=== PATIENT | female | born 1970 | race American Indian/Alaskan Native ===

== ENCOUNTER 2019-07-27 08:13 | Day surgery (SDC) | payer BC ==
[2019-07-27] MEDS ORDERED: METOPROLOL TARTRATE 50 MG TAB PO ONE (09:00)
[2019-07-27] MEDS ORDERED: METOPROLOL TARTRATE 50 MG TAB ONE (09:01)
[2019-07-27] MEDS ORDERED: METOPROLOL TARTRATE 25 MG TAB PO ONE (09:02)
[2019-07-27] MEDS ORDERED: METOPROLOL TARTRATE 25 MG TAB PO SCH (10:00)
[2019-07-27 10:16] LABS: BUN/Creatinine Ratio 14; Blood Urea Nitrogen 11 mg/dL (7-17); Calcium 9.2 mg/dL (8.4-10.2); Hemolysis Index 10
[2019-07-27] MEDS ORDERED: METOPROLOL TARTRATE 5 MG/5 ML INJ IV ONE (11:38)
[2019-07-27] MEDS ORDERED: NITROGLYCERIN 0.4 MG TAB SUBL SL ONE ×2 (12:14)
[2019-07-27] MEDS ORDERED: SODIUM CHLORIDE 0.9% 500 ML 0 ML ONE (12:23)
[2019-07-27 12:59] VITALS: BP 101/69
--- NOTE | 2019-07-27 14:13 | Cat Scan Report ---
LIMITED CTA CHEST HISTORY: Anomalous right coronary artery Indication: Limited evaluation of the chest associated with cardiac CTA exam. Technique: Arterial phase technique utilized to evaluate the carotid arteries. Please refer to the of ficial cardiac CTA report for contrast details. All CT scans at this location are performed using CT dose reduction for ALARA by means of automated exposure control. Findings: No pathologic adenopathy. Visualized lungs are clear. There are degenerative changes in the spine with no acute osseous abnormality. Limited imaging through the upper abdomen shows nothing acute. Impression: No significant incidental finding. Signer Name: Cale Rodgers Jr, MD Signed: 07/27/2019 2:09 PM Workstation Name: [id number]
--- NOTE | 2019-07-27 18:45 | CT Calcium Scoring Report ---
Coronary Calcium Score Procedure: High-resolution computed tomographic imaging of the chest was performed on07/27/19 with particular attention paid to the coronary arteries. Images from the examination were analyzed for the presence and extent of coronary artery calcification, using coronary calcium quantification software. The patient tolerated the procedure well and there were no complications. The results of the coronary calcification analysis are provided below. The patient scores are compared with published data related to scores for people of a similar age and the same gender. - Findings Total Agatson Score: 0 Findings: Cardiac CTA Indication: chest pain Informed consent obtained Procedure: The patient was brought to the cardiac ct laboratory at [facility] in stable condition after a 4 hour fast. Heart rate was regulated by beta blockade. Sublingual ngt was administered. A coronary calcium score was performed via the Agatston method. Left ventricular function was assessed by the threshold based volumetric segmentation approach. A separate radiology assessment of the non cardiac structures in the field of view will be provided. Superior vena cava in the field of view appears normal Inferior vena cava in the filed of view appears normal Ascending aorta in the field of view appears normal Descending aorta in the field of view appears normal Pulmonary artery in the filed of view appears normal Pulmonary veins enter the left atrium appropriately Left ventricle appears normal. The left ventricular ejection fraction is 67%. Normal systolic wall thickening Right Ventricle appears normal Left atrium appears normal Left atrial appendage appears normal Right atrium appears normal Interventricular septum appears normal Interatrial septum appears normal Aortic valve appears normal Mitral Valve appears normal Intracardiac mass: none Pericardial effusion: none Coronary Angiography: Dominance: right coronary artery Right coronary artery: The right coronary artery arises anonymously from the left coronary cusp and courses between the main pulmonary artery and the ascending aorta on its way toward the right atrio-ventricular groove. The origin of the right coronary artery exhibits a narrowed angulated slit like orifice. The right coronary artery is otherwise free of disease. Left main: originates properly from the left coronary cusp and is normal Left anterior descending coronary artery and diagonal branches: normal Circumflex coronary artery and obtuse marginal branches: normal The procedure was tolerated well. There were no procedural complications
== END 2019-07-27 13:00 | disposition home or self-care (01) ==
LOC: CATHLABREC 08:13
PROVIDERS: ATTEND Internal Medicine Cardiovascular Disease
DX: Q24.5 Malformation of coronary vessels (principal); M47.896 Other spondylosis, lumbar region; I10 Essential (primary) hypertension; J45.909 Unspecified asthma, uncomplicated; Z79.899 Other long term (current) drug therapy
CPT/HCPCS: 36415; 75574; 80048; 96374; Q9967; J7040